=== PATIENT | female | born 1980 | race Hispanic/Latino ===

== ENCOUNTER → 2017-10-16 | Outpatient (CLI) | payer OTHER, BC ==
[~2017-10-16] MED LIST: ISOVUE-370 50ML VIAL IV ONE
== END | disposition home or self-care (01) ==
LOC: RAH 08:48
PROVIDERS: ATTEND Obstetrics & Gynecology
DX: Z31.41 Encounter for fertility testing (principal)
CPT/HCPCS: 74740; 81025; Q9967

== ENCOUNTER 2018-08-07 12:13 | Inpatient (IN) | payer OTHER, BC ==
[~2018-08-07] VITALS: Ht 157.5 cm; Wt 68.5 kg
[2018-08-07] MEDS ORDERED: ACETAMINOPHEN EXTRA STRENGTH 500 MG TABLET ONE (12:42)
[2018-08-07] MEDS ORDERED: ONDANSETRON HCL 4 MG/2 ML VIAL ONE (12:42)
[2018-08-07 12:59] LABS: BASOPHILS % (AUTO) 0.1 % (0.0-5.0); EOSINOPHILS % (AUTO) 0.1 % (0.0-8.0); HEMATOCRIT 38.5 % (36-48); LYMPHOCYTES % (AUTO) 4.3 % (21.0-51.0); MEAN CORPUSCULAR HEMOGLOBIN 30.6 pg (27.0-33.0); MEAN CORPUSCULAR HGB CONC 34.1 g/dL (32.0-36.0); MEAN CORPUSCULAR VOLUME 89.6 fL (79-99); MONOCYTES % (AUTO) 7.6 % (3.0-13.0); NEUTROPHILS % (AUTO) 87.9 % (40.0-77.0); PLATELET COUNT (AUTO) 451 K/uL (130-400); RED CELL DISTRIBUTION WIDTH 13.7 % (11.0-15.5); WHITE BLOOD COUNT (AUTO) 19.2 K/uL (4.8-10.8)
[2018-08-07 13:02] LABS: APPEARANCE,URINE CLOUDY (CLEAR); BILIRUBIN,URINE MODERATE (NEGATIVE); GLUCOSE, URINE (UA) NEGATIVE (NEGATIVE); KETONES,URINE >=80 mg/dL (NEGATIVE); LEUKOCYTE ESTERASE ,URINE TRACE (NEGATIVE); NITRATE,URINE NEGATIVE (NEGATIVE); OCCULT BLOOD,URINE LARGE (NEGATIVE); PROTEIN,URINE 100 mg/dL (NEGATIVE)
[2018-08-07 13:04] LABS: HCG,QUAL RESULT NEGATIVE (NEGATIVE)
[2018-08-07 13:07] LABS: COLOR,URINE DARK YELLOW (YELLOW)
[2018-08-07 13:10] LABS: CREATININE 0.8 mg/dL (0.5-1.5); POTASSIUM 3.5 mmol/L (3.5-5.1)
[2018-08-07 13:14] LABS: ALBUMIN 2.9 g/dL (3.5-5.0); BILIRUBIN,TOTAL 0.5 mg/dL (0.2-1.0); TOTAL PROTEIN, SERUM 7.7 g/dL (6.0-8.3)
[2018-08-07 13:18] LABS: BACTERIA,URINE Few /HPF (None Seen); MUCUS,URINE Moderate LPF (None Seen); RBC,URINE 0-1 /HPF (0-1); SQUAMOUS EPITHELIAL CELL,UR Moderate /HPF (0-2)
[2018-08-07] MEDS ORDERED: IOHEXOL-350 75 ML VIAL IV ONE ×2 (13:56→20:48)
[2018-08-07] MEDS ORDERED: DOXYCYCLINE HYCLATE 100 MG TABLET PO ONE (15:16)
[2018-08-07] MEDS ORDERED: CEFOXITIN SODIUM 2 GM VIAL ONE (15:17)
[2018-08-07 16:40] VITALS: BP 106/78
[2018-08-07] MEDS ORDERED: LEVOFLOXACIN 500 MG/D5W 100 ML 100 ML IV SCH (18:30)
[2018-08-07] MEDS ORDERED: ZOSYN 3.375GM+NS 50ML 50 ML IV SCH (18:30)
[2018-08-07] MEDS ORDERED: IBUP-2070 PO (18:44)
[2018-08-07] MEDS ORDERED: DIATR MEGLU/DIATRIZOATE SODIUM 30 ML BOTTLE ONE (19:26)
[2018-08-07 19:32] VITALS: BP 98/63
[2018-08-07] MEDS: CEFTAZIDIME PENTAHYDRATE 1 GM/VIAL IVP SCH (20:41)
[2018-08-07 23:45] VITALS: BP 113/74
[2018-08-07] MEDS: METRONIDAZOLE 500MG/100ML BAG 100 ML IV SCH (23:47)
[2018-08-08] VITALS (7 sets, daily range): BP systolic 98–115; BP diastolic 58–70
[2018-08-08] MEDS: CEFTAZIDIME PENTAHYDRATE 1 GM/VIAL IVP SCH ×3 (03:51→20:24)
[2018-08-08] MEDS: DEXTROSE 5 %-0.45 % NACL 1,000 ML IV SCH ×3 (03:51→23:35)
[2018-08-08] MEDS: ACETAMINOPHEN EXTRA STRENGTH 500 MG TABLET PO PRN ×2 (03:58→09:27)
[2018-08-08] MEDS: METRONIDAZOLE 500MG/100ML BAG 100 ML IV SCH ×4 (06:00→23:35)
[2018-08-08 06:51] LABS: BASOPHILS % (AUTO) 0.3 % (0.0-5.0); EOSINOPHILS % (AUTO) 0.3 % (0.0-8.0); HEMATOCRIT 33.4 % (36-48); LYMPHOCYTES % (AUTO) 10.9 % (21.0-51.0); MEAN CORPUSCULAR HEMOGLOBIN 29.5 pg (27.0-33.0); MEAN CORPUSCULAR VOLUME 89.3 fL (79-99); MONOCYTES % (AUTO) 9.1 % (3.0-13.0); NEUTROPHILS % (AUTO) 79.4 % (40.0-77.0); PLATELET COUNT (AUTO) 451 K/uL (130-400); RED BLOOD CELL COUNT(AUTO) 3.74 MIL/uL (4.00-5.50); RED CELL DISTRIBUTION WIDTH 13.7 % (11.0-15.5); WHITE BLOOD COUNT (AUTO) 11.6 K/uL (4.8-10.8)
[2018-08-08] MEDS: IBUPROFEN 800 MG TAB PO PRN (17:16)
[2018-08-09] MEDS: CEFTAZIDIME PENTAHYDRATE 1 GM/VIAL IVP SCH ×3 (03:46→20:02)
[2018-08-09 03:55] VITALS: BP 100/57
[2018-08-09] MEDS: METRONIDAZOLE 500MG/100ML BAG 100 ML IV SCH ×4 (05:36→23:55)
[2018-08-09 07:41] VITALS: BP 111/76
[2018-08-09] MEDS: IBUPROFEN 800 MG TAB PO PRN (09:22)
[2018-08-09 11:22] VITALS: BP 109/85
[2018-08-09] MEDS: DEXTROSE 5 %-0.45 % NACL 1,000 ML IV SCH ×2 (11:45→23:57)
[2018-08-09 15:33] VITALS: BP 103/68
[2018-08-09] MEDS: ONDANSETRON HCL 4 MG/2 ML VIAL IVP PRN (18:38)
[2018-08-09 19:27] VITALS: BP 114/63
[2018-08-09 23:50] VITALS: BP 115/70
[2018-08-10] MEDS: CEFTAZIDIME PENTAHYDRATE 1 GM/VIAL IVP SCH ×3 (03:55→20:27)
[2018-08-10 04:29] VITALS: BP 112/70
[2018-08-10] MEDS: METRONIDAZOLE 500MG/100ML BAG 100 ML IV SCH ×3 (05:51→18:05)
[2018-08-10 06:26] LABS: BASOPHILS % (AUTO) 0.6 % (0.0-5.0); EOSINOPHILS % (AUTO) 0.9 % (0.0-8.0); HEMATOCRIT 33.2 % (36-48); LYMPHOCYTES % (AUTO) 24.7 % (21.0-51.0); MEAN CORPUSCULAR HEMOGLOBIN 30.4 pg (27.0-33.0); MEAN CORPUSCULAR HGB CONC 34.2 g/dL (32.0-36.0); MEAN CORPUSCULAR VOLUME 88.9 fL (79-99); MONOCYTES % (AUTO) 7.8 % (3.0-13.0); NUCLEATED RED BLOOD CELLS 0.1 % (0.0-0.19); PLATELET COUNT (AUTO) 516 K/uL (130-400); RED BLOOD CELL COUNT(AUTO) 3.73 MIL/uL (4.00-5.50); RED CELL DISTRIBUTION WIDTH 13.7 % (11.0-15.5); WHITE BLOOD COUNT (AUTO) 7.7 K/uL (4.8-10.8)
[2018-08-10 06:31] LABS: CREATININE 0.7 mg/dL (0.5-1.5); POTASSIUM 3.2 mmol/L (3.5-5.1)
[2018-08-10 07:42] VITALS: BP 110/65
[2018-08-10] MEDS: ONDANSETRON HCL 4 MG/2 ML VIAL IVP PRN ×2 (08:06→22:00)
[2018-08-10 10:10] LABS: INR 1.05 (0.85-1.15); PARTIAL THROMBOPLASTIN TIME 27.9 SEC (26.3-35.5)
[2018-08-10] MEDS: DEXTROSE 5 %-0.45 % NACL 1,000 ML IV SCH ×2 (10:44→21:52)
[2018-08-10 11:39] VITALS: BP 118/76
[2018-08-10] MEDS ORDERED: DIATR MEGLU/DIATRIZOATE SODIUM 30 ML BOTTLE ONE ×2 (11:45→14:21)
[2018-08-10] MEDS ORDERED: IOHEXOL-350 75 ML VIAL IV ONE (14:34)
[2018-08-10 16:21] VITALS: BP 114/75
[2018-08-10 19:16] VITALS: BP 115/73
[2018-08-10 23:28] VITALS: BP 107/62
[2018-08-11] MEDS: METRONIDAZOLE 500MG/100ML BAG 100 ML IV SCH ×5 (00:18→23:50)
[2018-08-11] MEDS: CEFTAZIDIME PENTAHYDRATE 1 GM/VIAL IVP SCH ×3 (04:25→20:41)
[2018-08-11 04:31] VITALS: BP 110/57
[2018-08-11] MEDS: DEXTROSE 5 %-0.45 % NACL 1,000 ML IV SCH ×2 (06:15→18:51)
[2018-08-11 07:56] VITALS: BP 111/78
[2018-08-11 11:30] VITALS: BP 115/78
[2018-08-11] MEDS: IBUPROFEN 800 MG TAB PO PRN (16:10)
[2018-08-11 16:28] VITALS: BP 103/71
[2018-08-11 19:19] VITALS: BP 103/73
[2018-08-11 23:31] VITALS: BP 92/71
[2018-08-12 03:39] VITALS: BP 111/69
[2018-08-12] MEDS: CEFTAZIDIME PENTAHYDRATE 1 GM/VIAL IVP SCH ×2 (03:40→12:43)
[2018-08-12] MEDS: DEXTROSE 5 %-0.45 % NACL 1,000 ML IV SCH (03:41)
[2018-08-12] MEDS: METRONIDAZOLE 500MG/100ML BAG 100 ML IV SCH ×2 (05:52→13:01)
[2018-08-12 07:27] VITALS: BP 125/80
[2018-08-12] MEDS: ONDANSETRON HCL 4 MG/2 ML VIAL IVP PRN (09:13)
[2018-08-12 11:33] VITALS: BP 123/82
== END 2018-08-12 15:05 | disposition home or self-care (01) | DRG 392 ==
LOC: EDH 12:13 → EDHIP 15:24 → WSH 16:27
DX: K57.80 Diverticulitis of intestine, part unspecified, with perforation and abscess without bleeding (principal); N39.0 Urinary tract infection, site not specified; N73.9 Female pelvic inflammatory disease, unspecified; N20.0 Calculus of kidney; Z86.32 Personal history of gestational diabetes; Z82.49 Family history of ischemic heart disease and other diseases of the circulatory system
CPT/HCPCS: 36415; 74177; 74178; 76830; 80048; 80053; 81001; 81025; 83605; 83690; 85025; 85610; 85730; 87040; 87210; 87486; 87797; A4218; G0378; J0694; J0713; J1956; J2405; J2543; J3490; J7120; Q9963; Q9967

== ENCOUNTER 2018-11-05 20:04 | Emergency (ER) | payer OTHER ==
[~2018-11-05 20:04] MED LIST changes: +IBUP-2070 PO; -ISOVUE-370 50ML VIAL IV ONE
[2018-11-05 20:40] LABS: BASOPHILS % (AUTO) 0.6 % (0.0-5.0); EOSINOPHILS % (AUTO) 0.9 % (0.0-8.0); HEMATOCRIT 42.7 % (36-48); LYMPHOCYTES % (AUTO) 26.6 % (21.0-51.0); MEAN CORPUSCULAR HEMOGLOBIN 29.9 pg (27.0-33.0); MEAN CORPUSCULAR VOLUME 87.9 fL (79-99); MONOCYTES % (AUTO) 8.6 % (3.0-13.0); NEUTROPHILS % (AUTO) 63.3 % (40.0-77.0); PLATELET COUNT (AUTO) 399 K/uL (130-400); RED BLOOD CELL COUNT(AUTO) 4.86 MIL/uL (4.00-5.50); RED CELL DISTRIBUTION WIDTH 14.2 % (11.0-15.5); WHITE BLOOD COUNT (AUTO) 9.6 K/uL (4.8-10.8)
[2018-11-05 20:54] LABS: CREATININE 0.8 mg/dL (0.5-1.5)
[2018-11-05 20:58] LABS: ALBUMIN 3.8 g/dL (3.5-5.0); BILIRUBIN,TOTAL 0.2 mg/dL (0.2-1.0)
[2018-11-05] MEDS ORDERED: SODIUM CHLORIDE 0.9% 1000ML 1,000 ML IV ONE (21:52)
[2018-11-05] MEDS ORDERED: IOHEXOL-350 75 ML VIAL IV ONE (22:08)
== END 2018-11-05 23:58 | disposition home or self-care (01) ==
LOC: EDH 20:04
DX: R07.2 Precordial pain (principal)
CPT/HCPCS: 36415; 71045; 71275; 80053; 84484 ×2; 85025; 85378; 93005 ×2; 93970; 99285; J7030; Q9967

== ENCOUNTER 2018-11-18 05:40 | Day surgery (SDC) | payer OTHER ==
[~2018-11-18] VITALS: Ht 157.5 cm; Wt 68.0 kg
[~2018-11-18 05:40] MED LIST changes: -IBUP-2070 PO; +SODIUM CHLORIDE 0.9% 1000ML 1,000 ML IV ONE
[2018-11-18] MEDS ORDERED: PROPOFOL 10 MG/ML 20ML VIAL IV ONE ×3 (06:00→08:06)
[2018-11-18] MEDS ORDERED: LIDOCAINE HCL 1% 20 ML VIAL ONE (06:00)
[2018-11-18 06:49] VITALS: BP 100/65
[2018-11-18] MEDS ORDERED: EPHEDRINE SULFATE 50 MG/ML AMPULE ONE (07:57)
[2018-11-18] MEDS ORDERED: PHENYLEPHRINE HCL 10 MG/ML 1ML VIAL IV ONE (08:05)
[2018-11-18] MEDS ORDERED: MIDAZOLAM HCL 1 MG/ML 2ML VIAL ONE (08:06)
[2018-11-18 08:20] VITALS: BP 122/69
[2018-11-18 08:25] VITALS: BP 96/50
[2018-11-18 08:30] VITALS: BP 92/37
[2018-11-18 08:37] VITALS: BP 111/64
== END 2018-11-18 08:48 | disposition home or self-care (01) ==
LOC: ENDO 05:40 → DAH 05:40 → ENDO 08:48
PROVIDERS: ATTEND Internal Medicine
DX: K63.3 Ulcer of intestine (principal); K63.5 Polyp of colon; K57.30 Diverticulosis of large intestine without perforation or abscess without bleeding; K57.80 Diverticulitis of intestine, part unspecified, with perforation and abscess without bleeding; K64.0 First degree hemorrhoids; K59.04 Chronic idiopathic constipation; Z80.0 Family history of malignant neoplasm of digestive organs; K52.9 Noninfective gastroenteritis and colitis, unspecified; Z79.899 Other long term (current) drug therapy
CPT/HCPCS: 36415; 45380; 84703; A4606; J2250; J2370; J2704 ×3; J3490; J7030

== ENCOUNTER 2019-03-02 07:24 | Day surgery (SDC) | payer OTHER, BC ==
[2019-03-01 12:30] VITALS: BP 118/75
[2019-03-01 12:46] LABS: BASOPHILS % (AUTO) 0.3 % (0.0-5.0); EOSINOPHILS % (AUTO) 0.9 % (0.0-8.0); HEMATOCRIT 41.7 % (36-48); LYMPHOCYTES % (AUTO) 25.9 % (21.0-51.0); MEAN CORPUSCULAR HEMOGLOBIN 29.9 pg (27.0-33.0); MEAN CORPUSCULAR HGB CONC 33.4 g/dL (32.0-36.0); MEAN CORPUSCULAR VOLUME 89.6 fL (79-99); MONOCYTES % (AUTO) 7.2 % (3.0-13.0); NEUTROPHILS % (AUTO) 65.7 % (40.0-77.0); PLATELET COUNT (AUTO) 360 K/uL (130-400); RED BLOOD CELL COUNT(AUTO) 4.65 MIL/uL (4.00-5.50); RED CELL DISTRIBUTION WIDTH 13.9 % (11.0-15.5); WHITE BLOOD COUNT (AUTO) 8.8 K/uL (4.8-10.8)
[~2019-03-02] VITALS: Ht 160 cm; Wt 70.9 kg
[2019-03-02] VITALS (17 sets, daily range): BP systolic 80–137; BP diastolic 40–85
[2019-03-02] MEDS ORDERED: CALDOLOR 800MG+NS 250ML 250 ML IV ONE (07:47)
[2019-03-02] MEDS ORDERED: LACTATED RINGERS 1000ML 1,000 ML IV SCH (08:00)
[2019-03-02] MEDS ORDERED: LIDOCAINE PF 2% 5ML ABBOJECT ONE (08:37)
[2019-03-02] MEDS ORDERED: PROPOFOL 10 MG/ML 20ML VIAL IV ONE (08:38)
[2019-03-02] MEDS ORDERED: ONDANSETRON HCL 4 MG/2 ML VIAL ONE (08:38)
[2019-03-02] MEDS ORDERED: MIDAZOLAM HCL 1 MG/ML 2ML VIAL ONE (08:38)
[2019-03-02] MEDS ORDERED: FENTANYL CITRATE PF 50 MCG/1 ML 2ML VIAL ONE (08:39)
[2019-03-02] MEDS ORDERED: ROCURONIUM 10MG/1ML SYR 10 MG/ML ML ONE (08:39)
[2019-03-02] MEDS ORDERED: IOHEXOL-350 50ML VIAL IV ONE (08:41)
[2019-03-02] MEDS ORDERED: BUPIVACAINE/PF 0.25% 30ML VIAL IJ ONE (09:04)
[2019-03-02] MEDS ORDERED: NEOSTIGMINE 5MG/5ML SYR IV ONE (09:48)
[2019-03-02] MEDS ORDERED: GLYCOPYRROLATE 1 MG/5 ML SYRINGE ONE (09:48)
== END 2019-03-02 11:50 | disposition home or self-care (01) ==
LOC: DAH 07:24
DX: R10.2 Pelvic and perineal pain (principal); N80.9 Endometriosis, unspecified; N73.6 Female pelvic peritoneal adhesions (postinfective)
CPT/HCPCS: 36415; 58340; 58662; 74740; 84703; 85025; 86850; 86900; 86901; 96365; A4215; A4221; A4222; A4223; A4351; A4355; A4663; C1769 ×3; G0168; J1741; J2001; J2250; J2405; J2704; J2710; J3010; J3490 ×2; J7030; J7120; Q9967

== ENCOUNTER → 2020-06-26 | Outpatient (CLI) | payer OTHER, BC ==
[2020-06-26 10:09] LABS: BASOPHILS % (AUTO) 0.7 % (0.0-5.0); EOSINOPHILS % (AUTO) 1.5 % (0.0-8.0); HEMATOCRIT 45.5 % (36-48); LYMPHOCYTES % (AUTO) 29.9 % (21.0-51.0); MEAN CORPUSCULAR HEMOGLOBIN 30.3 pg (27.0-33.0); MEAN CORPUSCULAR HGB CONC 33.2 g/dL (32.0-36.0); MEAN CORPUSCULAR VOLUME 91.2 fL (79-99); MONOCYTES % (AUTO) 8.4 % (3.0-13.0); NEUTROPHILS % (AUTO) 57.8 % (40.0-77.0); PLATELET COUNT (AUTO) 378 K/uL (130-400); RED BLOOD CELL COUNT(AUTO) 4.99 MIL/uL (4.00-5.50); RED CELL DISTRIBUTION WIDTH 13.5 % (11.0-15.5); WHITE BLOOD COUNT (AUTO) 7.2 K/uL (4.8-10.8)
[2020-06-26 10:24] LABS: ALBUMIN 3.8 g/dL (3.5-5.0); BILIRUBIN,TOTAL 0.3 mg/dL (0.2-1.0); CREATININE 0.8 mg/dL (0.5-1.5); POTASSIUM 4.5 mmol/L (3.5-5.1); TOTAL PROTEIN, SERUM 8.4 g/dL (6.0-8.3)
[2020-06-26 10:27] LABS: PROTHROMBIN TIME 10.9 SEC (9.6-11.6)
[2020-06-26 10:29] LABS: PARTIAL THROMBOPLASTIN TIME 27.1 SEC (26.3-35.5)
== END | disposition home or self-care (01) ==
LOC: RAH 08:48
PROVIDERS: ATTEND Internal Medicine
DX: Z01.811 Encounter for preprocedural respiratory examination (principal); E78.2 Mixed hyperlipidemia; K76.9 Liver disease, unspecified; R73.9 Hyperglycemia, unspecified
CPT/HCPCS: 36415; 71046; 80053; 80061; 85025; 85610; 85730

== ENCOUNTER → 2020-06-28 | Outpatient (CLI) | payer OTHER, BC | END | disposition home or self-care (01) | LOC: LAB 07:55 | PROVIDERS: ATTEND Internal Medicine | DX: Z01.83 Encounter for blood typing (principal); Z01.812 Encounter for preprocedural laboratory examination | CPT/HCPCS: 36415; 84702; 86850; 86900; 86901 ==

== ENCOUNTER 2020-07-25 16:04 | Emergency (ER) | payer OTHER, BC ==
[2020-07-25 16:42] LABS: BASOPHILS % (AUTO) 0.8 % (0.0-5.0); EOSINOPHILS % (AUTO) 4.5 % (0.0-8.0); HEMATOCRIT 33.6 % (36-48); LYMPHOCYTES % (AUTO) 24.7 % (21.0-51.0); MEAN CORPUSCULAR HEMOGLOBIN 29.8 pg (27.0-33.0); MEAN CORPUSCULAR HGB CONC 32.1 g/dL (32.0-36.0); MEAN CORPUSCULAR VOLUME 92.6 fL (79-99); MONOCYTES % (AUTO) 11.2 % (3.0-13.0); NEUTROPHILS % (AUTO) 55.6 % (40.0-77.0); PLATELET COUNT (AUTO) 640 K/uL (130-400); RED BLOOD CELL COUNT(AUTO) 3.63 MIL/uL (4.00-5.50); RED CELL DISTRIBUTION WIDTH 14.8 % (11.0-15.5); WHITE BLOOD COUNT (AUTO) 8.4 K/uL (4.8-10.8)
[2020-07-25 16:51] LABS: CREATININE 0.8 mg/dL (0.5-1.5); POTASSIUM 3.9 mmol/L (3.5-5.1)
[2020-07-25 16:55] LABS: ALBUMIN 3.4 g/dL (3.5-5.0); BILIRUBIN,TOTAL 0.2 mg/dL (0.2-1.0); TOTAL PROTEIN, SERUM 7.7 g/dL (6.0-8.3)
[2020-07-25] MEDS ORDERED: MORPHINE 4 MG SYG ONE (17:50)
[2020-07-25] MEDS ORDERED: ONDANSETRON 4MG INJ ONE (17:50)
== END 2020-07-25 19:18 | disposition home or self-care (01) ==
LOC: EDH 16:04
DX: L76.34 Postprocedural seroma of skin and subcutaneous tissue following other procedure (principal); Z98.890 Other specified postprocedural states
CPT/HCPCS: 36415; 74176; 80053; 85025; 87040 ×2; 96374; 96375; 99284; J2270; J2405

== ENCOUNTER → 2020-07-25 | Outpatient (CLI) | payer OTHER, BC ==
[2020-07-25 10:02] LABS: BASOPHILS % (AUTO) 0.6 % (0.0-5.0); EOSINOPHILS % (AUTO) 4.1 % (0.0-8.0); HEMATOCRIT 35.3 % (36-48); LYMPHOCYTES % (AUTO) 25.6 % (21.0-51.0); MEAN CORPUSCULAR HGB CONC 30.9 g/dL (32.0-36.0); MEAN CORPUSCULAR VOLUME 93.9 fL (79-99); NEUTROPHILS % (AUTO) 53.4 % (40.0-77.0); PLATELET COUNT (AUTO) 697 K/uL (130-400); RED BLOOD CELL COUNT(AUTO) 3.76 MIL/uL (4.00-5.50); RED CELL DISTRIBUTION WIDTH 14.9 % (11.0-15.5); WHITE BLOOD COUNT (AUTO) 6.8 K/uL (4.8-10.8)
[2020-07-25 10:25] LABS: ALBUMIN 3.3 g/dL (3.5-5.0); BILIRUBIN,TOTAL 0.2 mg/dL (0.2-1.0); CREATININE 0.7 mg/dL (0.5-1.5); POTASSIUM 4.4 mmol/L (3.5-5.1); TOTAL PROTEIN, SERUM 7.6 g/dL (6.0-8.3)
== END | disposition home or self-care (01) ==
LOC: RAH 08:53
PROVIDERS: ATTEND Internal Medicine
DX: M79.89 Other specified soft tissue disorders (principal); Z98.890 Other specified postprocedural states
CPT/HCPCS: 36415; 80053; 85025; 93970

== ENCOUNTER → 2020-07-28 | Outpatient (CLI) | payer OTHER, BC | END | disposition home or self-care (01) | LOC: LAB 15:52 | PROVIDERS: ATTEND Internal Medicine | DX: T81.9XXA Unspecified complication of procedure, initial encounter (principal) | CPT/HCPCS: 87070; 87076; 87205 ==

== ENCOUNTER 2020-11-29 18:16 | Emergency (ER) | payer OTHER, BC ==
[~2020-11-29] VITALS: Ht 157.5 cm; Wt 70.3 kg
[2020-11-29 20:46] LABS: BASOPHILS % (AUTO) 0.5 % (0.0-5.0); EOSINOPHILS % (AUTO) 1.6 % (0.0-8.0); HEMATOCRIT 43.8 % (36-48); MEAN CORPUSCULAR HGB CONC 31.3 g/dL (32.0-36.0); MEAN CORPUSCULAR VOLUME 86.2 fL (79-99); MONOCYTES % (AUTO) 8.2 % (3.0-13.0); NEUTROPHILS % (AUTO) 65.6 % (40.0-77.0); PLATELET COUNT (AUTO) 386 K/uL (130-400); RED BLOOD CELL COUNT(AUTO) 5.08 MIL/uL (4.00-5.50); RED CELL DISTRIBUTION WIDTH 15.1 % (11.0-15.5); WHITE BLOOD COUNT (AUTO) 11.6 K/uL (4.8-10.8)
[2020-11-29 20:57] LABS: CREATININE 0.8 mg/dL (0.5-1.5); POTASSIUM 3.4 mmol/L (3.5-5.1)
[2020-11-29 21:01] LABS: ALBUMIN 3.5 g/dL (3.5-5.0); BILIRUBIN,TOTAL 0.1 mg/dL (0.2-1.0); CRP QUANTITATIVE 10.6 mg/L (0.00-9.0); TOTAL PROTEIN, SERUM 7.9 g/dL (6.0-8.3)
[2020-11-29 21:17] LABS: APPEARANCE,URINE Cloudy (CLEAR); BILIRUBIN,URINE Negative (NEGATIVE); COLOR,URINE Yellow (YELLOW); GLUCOSE, URINE (UA) Negative (NEGATIVE); KETONES,URINE Negative (NEGATIVE); LEUKOCYTE ESTERASE ,URINE Moderate (NEGATIVE); NITRATE,URINE Negative (NEGATIVE); OCCULT BLOOD,URINE Nonhemolyzed Trace (NEGATIVE); PH,URINE 6.5 (5.0-8.0); PROTEIN,URINE Negative (NEGATIVE)
[2020-11-29 21:25] LABS: HCG,QUAL RESULT NEGATIVE (NEGATIVE)
[2020-11-29] MEDS ORDERED: POTASSIUM BICARB/CIT AC 25 MEQ TABLET.EFF PO ONE (21:30)
[2020-11-29] MEDS ORDERED: KETOROLAC 60 MG VIAL (30MG/ML) IM ONE (21:30)
[2020-11-29 21:31] LABS: BACTERIA,URINE Few /HPF (None Seen); SQUAMOUS EPITHELIAL CELL,UR Moderate /HPF (0-2)
[2020-11-29] MEDS ORDERED: LIDOCAINE HCL-MPF 1% 2ML VIAL ONE (21:39)
[2020-11-29] MEDS ORDERED: NAPR-1180 PO (21:50)
[2020-11-29] MEDS ORDERED: CEPH500B PO (21:50)
[2020-11-29] MEDS ORDERED: CEFTRIAXONE 1G VIAL IM ONE (22:00)
[2020-11-29 22:21] VITALS: BP 123/77
== END 2020-11-29 22:27 | disposition home or self-care (01) ==
LOC: EDH 18:16
DX: N39.0 Urinary tract infection, site not specified (principal); L51.9 Erythema multiforme, unspecified; Z79.1 Long term (current) use of non-steroidal anti-inflammatories (NSAID)
CPT/HCPCS: 36415; 71045; 80053; 81001; 81025; 85025; 85378; 86140; 87077; 87088; 87186; 93971; 96372 ×2; 99285; J0696; J1885; J3490

== ENCOUNTER → 2021-04-05 | Outpatient (CLI) | payer OTHER, BC ==
[~2021-04-05] MED LIST changes: +CEPH500B PO; +NAPR-1180 PO; -SODIUM CHLORIDE 0.9% 1000ML 1,000 ML IV ONE
[2021-04-05 08:37] LABS: CHOLESTEROL 241 mg/dL (<200); HDL CHOLESTEROL 40 mg/dL (35-85); LDL DIRECT 164 mg/dL (0-99); TRIGLYCERIDES 137 mg/dL (30-200)
== END | disposition home or self-care (01) ==
LOC: LAB 07:51
PROVIDERS: ATTEND Internal Medicine
DX: E78.2 Mixed hyperlipidemia (principal)
CPT/HCPCS: 36415; 80061